=== PATIENT | male | born 1980 | race Caucasian/White ===

== ENCOUNTER → 2018-02-22 | Outpatient (CLI) | payer OTHER ==
[~2018-02-22] VITALS: Ht 186.7 cm; Wt 110.9 kg
[~2018-02-22] MED LIST: ANTIVERT 25MG25 MG PO; LIPITOR 10MG10 MG PO; ROBAXIN 50500 MG/TAB PO
[2018-02-22 09:09] VITALS: BP 112/84; PULSE 68
== END ==
LOC: LIGHT 08:41
DX: M51.36 Other intervertebral disc degeneration, lumbar region (principal); K21.9 Gastro-esophageal reflux disease without esophagitis; E78.1 Pure hyperglyceridemia; E66.9 Obesity, unspecified; Z68.31 Body mass index [BMI] 31.0-31.9, adult; Z71.3 Dietary counseling and surveillance
CPT/HCPCS: G0463

== ENCOUNTER → 2018-03-27 | Outpatient (CLI) | payer OTHER | LOC: LIGHT 14:36 | DX: Z01.89 Encounter for other specified special examinations (principal) ==

== ENCOUNTER → 2018-05-11 | Outpatient (CLI) | payer OTHER ==
[~2018-05-11] VITALS: Ht 186.7 cm; Wt 108.0 kg
== END ==
LOC: LIGHT 03-30 14:01
DX: M51.36 Other intervertebral disc degeneration, lumbar region (principal); K21.9 Gastro-esophageal reflux disease without esophagitis; E78.1 Pure hyperglyceridemia; E66.9 Obesity, unspecified; Z71.3 Dietary counseling and surveillance
CPT/HCPCS: G0463

== ENCOUNTER → 2018-06-15 | Outpatient (CLI) | payer OTHER ==
[~2018-06-15] VITALS: Ht 186.7 cm; Wt 107.3 kg
[~2018-06-15] MED LIST changes: +PHENDIMETRAZIN105 MG PO
[2018-06-15 16:30] VITALS: BP 104/60; PULSE 64
== END ==
LOC: LIGHT 13:14
DX: M51.36 Other intervertebral disc degeneration, lumbar region (principal); K21.9 Gastro-esophageal reflux disease without esophagitis; E75.5 Other lipid storage disorders; E66.9 Obesity, unspecified; Z68.30 Body mass index [BMI] 30.0-30.9, adult; Z71.3 Dietary counseling and surveillance
CPT/HCPCS: G0463

== ENCOUNTER → 2018-08-03 | Outpatient (CLI) | payer OTHER ==
[~2018-08-03] VITALS: Ht 186.7 cm; Wt 105.0 kg
[2018-08-03 16:38] VITALS: BP 126/70; PULSE 72
== END ==
LOC: LIGHT 15:20
DX: M51.36 Other intervertebral disc degeneration, lumbar region (principal); K21.9 Gastro-esophageal reflux disease without esophagitis; E75.5 Other lipid storage disorders; E66.9 Obesity, unspecified; Z68.30 Body mass index [BMI] 30.0-30.9, adult; Z71.3 Dietary counseling and surveillance
CPT/HCPCS: G0463

== ENCOUNTER 2021-12-16 04:22 | Emergency (ER) | payer OTHER ==
[~2021-12-16] VITALS: Ht 188 cm; Wt 111.4 kg
[2021-12-16 04:25] VITALS: TEMP 99.1
[2021-12-16 04:49] LABS: HEMATOCRIT 41.7 % (42.0-52.0); HEMOGLOBIN 14.8 g/dl (13.5-18.0); MEAN CELL VOLUME 87 fl (80.0-100.0); MEAN CORPUSCULAR HEMOGLOBIN 31 pg (27-31); MEAN CORPUSCULAR HGB CONC 36 g/dl (33.0-37.0); PLATELET COUNT 308 K/mm3 (130-400); RED BLOOD COUNT 4.77 M/mm3 (4.20-5.60); REDCELL DISTRIBUTION WIDTH-CV 11.9 % (11.5-14.5)
[2021-12-16 05:07] LABS: ALANINE AMINOTRANSFERASE 54 U/L (0-55); ALBUMIN 4.5 gm/dL (3.5-5.0); ALKALINE PHOSPHATASE 77 U/L (40-150); ANION GAP 11 mmol/L (7-16); AST,SGOT 34 U/L (5-34); BILIRUBIN,TOTAL 1.2 mg/dL (0.2-1.2); BLOOD UREA NITROGEN 12 mg/dL (9-21); CALCIUM 9.1 mg/dL (8.4-10.2); CARBON DIOXIDE 24 mmol/L (22-29); CHLORIDE 102 mmol/L (98-107); CREATININE, serum 1.25 mg/dL (0.72-1.25); GLUCOSE 102 mg/dL (70-99); LIPASE 32 U/L (8-78); POTASSIUM 3.8 mmol/L (3.5-4.5); SODIUM 137 mmol/L (136-145); TOTAL PROTEIN 7.7 gm/dL (6.2-8.1)
[2021-12-16 05:18] LABS: BAND 6 % (0-10); EOSINOPHIL 3 % (0-4); LYMPHOCYTE 15 % (20.0-51.0); NEUTROPHILS 56 % (42.0-75.2); PLATELET ESTIMATE NORMAL (NORMAL)
[2021-12-16 05:22] LABS: TROPONIN-I < 0.010 ng/mL (0.00-0.033)
[2021-12-16 07:12] VITALS: BP 114/72; PULSE 106
== END 2021-12-16 07:12 | disposition home or self-care (01) ==
LOC: COL.ER 04:22
PROVIDERS: Student in an Organized Health Care Education/Training Program
DX: R07.89 Other chest pain (principal)
CPT/HCPCS: J2270; J2405; Q9967